=== PATIENT | male | born 2000 | race Caucasian/White ===

== ENCOUNTER 2023-05-17 11:41 | Emergency (ER) | payer OTHER ==
[~2023-05-17] VITALS: Ht 175.3 cm; Wt 77.2 kg
[2023-05-17 11:42] VITALS: BP 143/70; TEMP 98.2; O2SAT 98
[2023-05-17] MEDS: LIDOCAINE 2% MDV 20ML VIAL SC ONE (13:55)
== END 2023-05-17 14:32 | disposition home or self-care (01) ==
LOC: M ED 11:41
DX: S61.102A Unspecified open wound of left thumb with damage to nail, initial encounter (principal); W26.0XXA Contact with knife, initial encounter; Y92.009 Unspecified place in unspecified non-institutional (private) residence as the place of occurrence of the external cause; Y93.G1 Activity, food preparation and clean up; Y99.9 Unspecified external cause status; Z88.0 Allergy status to penicillin; Z88.2 Allergy status to sulfonamides; Z88.1 Allergy status to other antibiotic agents